=== PATIENT | female | born 1990 | race Asian ===

== ENCOUNTER 2018-09-17 15:38 | Emergency (ER) | payer OTHER ==
[2018-09-17 15:48] VITALS: BP 147/90
[2018-09-17] MEDS ORDERED: AMOXICILLIN 250 MG CAPSULE PO STA (16:23)
[2018-09-17] MEDS ORDERED: IBUPROFEN 800 MG TABLET PO STA (16:25)
--- NOTE | 2018-09-17 16:28 | ED Physician Documentation ---
PD HPI HEENT - Stated complaint Stated Complaint: THROAT PX - Chief complaint Chief Complaint: Heent - History obtained from History obtained from: Patient - History of Present Illness Timing - onset: How many days ago (3) Timing - duration: Days (3) Timing - details: Still present Location: Throat Associated symptoms: Swollen nodes Similar symptoms before: Diagnosis (Past history of strep throat.) - Additional information Additional information: The patient is a 28-year-old female who presents with a sore throat of 3 days' duration. She has noticed enlarged anterior cervical lymph nodes. She denies fever, headache, cough, or abdominal symptoms. She has a history of strep throat, and states this feels similar to previous episodes. Review of Systems Constitutional: denies: Fever Eyes: denies: Irritation Ears: denies: Ear pain Nose: denies: Congestion Throat: reports: Sore throat Cardiac: denies: Chest pain / pressure Respiratory: denies: Dyspnea, Cough GI: denies: Abdominal Pain, Nausea, Vomiting : denies: Dysuria Skin: denies: Rash Musculoskeletal: denies: Back pain Neurologic: denies: Headache PD PAST MEDICAL HISTORY - Past Medical History Past Medical History: Yes Cardiovascular: None Respiratory: None Neuro: None Endocrine/Autoimmune: None GI: None PRINCIPAL ACCOUNTS CLERK: None : None HEENT: None Psych: None Musculoskeletal: None Derm: None - Past Surgical History Past Surgical History: No - Present Medications Home Medications: Ambulatory Orders Medication Instructions Recorded Confirmed Norelgestromin/Ethin.estradiol 1 patch TOP ONCE 03/05/15 03/05/15 [Xulane Patch] Amoxicillin 500 mg PO TID #30 capsule 09/17/18 - Allergies Allergies/Adverse Reactions: Allergies Allergy/AdvReac Type Severity Reaction Status Date / Time No Known Drug Allergies Allergy Verified 09/17/18 15:47 - Social History Does the pt smoke?: No Smoking Status: Never smoker Does the pt drink ETOH?: Yes ETOH Use: Wine Does the pt have substance abuse?: No - Immunizations Immunizations are current?: Yes - POLST Patient has POLST: No PD ED PE NORMAL - Vitals Vital signs reviewed: Yes (Initially hypertensive.) - General General: Alert and oriented X 3, Well developed/nourished - HEENT HEENT: Atraumatic, EOMI, Ears normal, Other (Oropharynx is erythematous, with enlarged tonsils with exudates bilaterally.) - Neck Neck: Supple, no meningeal sign, Other (Enlarged anterior cervical nodes bilaterally.) - Cardiac Cardiac: RRR, No murmur - Respiratory Respiratory: No respiratory distress, Clear bilaterally - Abdomen Abdomen: Soft, Non tender, No organomegaly - Back Back: No CVA TTP - Derm Derm: No rash - Extremities Extremities: No tenderness to palpate - Neuro Neuro: Alert and oriented X 3, No motor deficit, Normal speech Results - Vitals Vitals: Oxygen O2 Source Room air - Labs Labs: Laboratory Tests 09/17/18 14:21 Group A Strep Rapid POSITIVE H PD MEDICAL DECISION MAKING - ED course Complexity details: reviewed results, re-evaluated patient, considered differential, d/w patient ED course: The patient's presentation is most consistent with acute streptococcal phary ngitis, with a positive rapid strep screen. There is no clinical evidence to suggest peritonsillar abscess. Treatment in the emergency department included administration of amoxicillin 500 mg orally and ibuprofen 800 mg orally. I discussed with her the expected course of illness, antibiotic treatment and outpatient follow-up, as well as potentially worrisome signs or symptoms that should prompt reevaluation in the emergency department. Departure - Departure Disposition: 01 Home, Self Care Clinical Impression: Acute streptococcal pharyngitis Condition: Stable Instructions: ED Strep Pharyngitis Conf Follow-Up: Scottie Foster DO [Primary Care Provider] - Prescriptions: Amoxicillin 500 mg PO TID #30 capsule Comments: Take amoxicillin 3 times daily as prescribed. Gargle with cool liquids. You can use Tylenol or ibuprofen as needed for fever or discomfort. Follow-up with your primary physician within 2 weeks. Call to schedule an appointment. Return to the emergency department if you develop increasing difficulty swallowing, or otherwise worsening symptoms. Forms: Activity restrictions Discharge Date/Time: 09/17/18 16:48
== END 2018-09-17 16:48 | disposition home or self-care (01) ==
LOC: ED 15:38
DX: J02.0 Streptococcal pharyngitis (principal)
CPT/HCPCS: 87430; 99283; A9270